=== PATIENT | female | born 1970 | race Caucasian/White ===

== ENCOUNTER 2017-07-31 05:02 | Emergency (ER) | payer OTHER ==
[~2017-07-31] VITALS: Ht 167.6 cm; Wt 65.9 kg
[2017-07-31 05:10] VITALS: Ht 167.6 cm; Wt 65.9 kg
[2017-07-31] MEDS ORDERED: ONDANSETRON 4 MG INJ IV STA (07:12)
[2017-07-31] MEDS ORDERED: SOD CHLORIDE 0.9% 1,000 ML IV STA (07:12)
[2017-07-31] MEDS ORDERED: morphine 4 MG/ML VIAL IV STA (07:12)
[2017-07-31 07:54] LABS: BASOPHILS % 0.5 % (0.0-2.0); EOSINOPHILS # 0.1 10^3/ul (0.0-0.5); EOSINOPHILS % 1.1 % (0.0-7.0); HEMATOCRIT 38.3 % (37.0-47.0); HEMOGLOBIN 13.1 g/dl (12.0-16.0); LYMPHOCYTES # 1.9 10^3/ul (0.8-2.9); LYMPHOCYTES % 31.2 % (15.0-51.0); MEAN CORPUSCULAR HGB CONC 34.2 g/dl (32.0-37.0); MEAN CORPUSCULAR VOLUME 90.8 fl (82.0-101.0); MEAN PLATELET VOLUME 9.8 fl (7.4-10.4); MONOCYTE # 0.4 10^3/ul (0.3-0.9); NEUTROPHIL # 3.8 10^3/ul (1.6-7.5); PLATELET COUNT 217 10^3/UL (140-415); RED BLOOD COUNT 4.22 10^6/ul (4.20-5.40); RED CELL DISTRIBUTION WIDTH 12.3 % (11.5-14.5); WHITE BLOOD COUNT 6.2 10^3/ul (4.8-10.8)
[2017-07-31 08:47] LABS: ADD UMIC YES; UR ASCORBIC ACID NEGATIVE (NEGATIVE); UR BACTERIA FEW /HPF (NONE SEEN); UR BILIRUBIN (Dip) NEGATIVE (NEGATIVE); UR BLOOD (Dip) 2+ mg/dL (NEGATIVE); UR CLARITY CLEAR (CLEAR); UR COLOR STRAW (YELLOW); UR GLUCOSE (Dip) NEGATIVE (NEGATIVE); UR KETONES (Dip) NEGATIVE (NEGATIVE); UR LEUKOCYTE ESTERASE (Dip) TRACE Leu/ul (NEGATIVE); UR NITRITE (Dip) NEGATIVE (NEGATIVE); UR RBC 0 /HPF (0-5); UR SPECIFIC GRAVITY (Dip) 1.004 (1.003-1.030); UR TOTAL PROTEIN (Dip) NEGATIVE (NEGATIVE); UR UROBILINOGEN (Dip) NEGATIVE (NEGATIVE)
[2017-07-31 08:52] LABS: ALBUMIN 3.9 g/dl (3.3-4.9); ALBUMIN/GLOBULIN RATIO 1.25; BILIRUBIN,INDIRECT 0.4 mg/dl (0-1.1); BILIRUBIN,TOTAL 0.4 mg/dl (0.2-1.3); CALCIUM 8.7 mg/dl (8.4-10.2); CREATININE 0.69 mg/dl (0.44-1.00); POTASSIUM 3.8 mmol/L (3.5-5.1)
[2017-07-31] MEDS ORDERED: NITR-58 PO (08:52)
[2017-07-31 09:19] VITALS: BP 147/70; PULSE 76; RESP 16; TEMP 98.4
--- NOTE | 2017-07-31 12:29 | ERA ---
ER Documentation Chief Complaint Date/Time DATE: 07/31/17 TIME: 12:24 Chief Complaint MID/LOWER AP SINCE 11PM LAST NIGHT. +VOMITING HPI Otherwise healthy 47-year-old female presenting with a chief complaint of abdominal pain 1 day. Patient is also complaining of vomiting that is described as nonbilious. No other specific characteristics given. Abdominal pain is currently 4-5 out of 10. States most of the pain is on the right side. Patient states that she is able to tolerate p.o. Denies fever, chills, dysuria, hematuria, neck pain, abdominal pain, diarrhea, constipation, headache or cough. No recent illness. No sick contacts. Vaccination status up-to-date. No recent travel. Has not taken any medications to relieve symptoms. Patient has no other complaints and describes no other associated manifestations. ROS All systems reviewed and are negative except as per history of present illness. Medications Home Meds Active Scripts Nitrofurantoin Monohyd Macrocr (Macrobid) 100 Mg Capsr, 100 MG PO BID for 5 Days , CAP Prov:MAURICE LOPEZ PA-C 07/31/17 Allergies Allergies: Coded Allergies: sulfamethoxazole (Verified Allergy, Mild, 07/31/17) trimethoprim (Verified Allergy, Mild, 07/31/17) PMhx/Soc Medical and Surgical Hx: pt denies Medical Hx, pt denies Surgical Hx History of Surgery: No Anesthesia Reaction: No Hx Neurological Disorder: No Hx Respiratory Disorders: No Hx Cardiac Disorders: No Hx Psychiatric Problems: No Hx Miscellaneous Medical Probl: No Hx Alcohol Use: No Hx Substance Use: No Hx Tobacco Use: No Smoking Status: Never smoker Physical Exam Vitals Vital Signs Date Time Temp Pulse Resp B/P Pulse Ox O2 Delivery O2 Flow Rate FiO2 07/31/17 09:19 98.4 76 16 147/70 100 Room Air 07/31/17 05:10 96.9 68 18 158/70 100 Physical Exam Const: Well-appearing 47-year-old female no acute distress. Head: Atraumatic Eyes: Normal Conjunctiva ENT: Normal External Ears, Nose and Mouth. Neck: Full range of motion..~ No meningismus. Resp: Clear to auscultation bilaterally Cardio: Regular rate and rhythm, no murmurs Abd: Soft, non tender, non distended. Normal bowel sounds Skin: No petechiae or rashes Back: No midline or flank tenderness Ext: No cyanosis, or edema Neur: Awake and alert Psych: Normal Mood and Affect Result Diagram: 07/31/17 0743 07/31/17 0818 Results 24 hrs Laboratory Tests Test 07/31/17 07:43 07/31/17 07:45 07/31/17 08:18 White Blood Count 6.210^3/ul Red Blood Count 4.2210^6/ul Hemoglobin 13.1g/dl Hematocrit 38.3% Mean Corpuscular Volume 90.8fl Mean Corpuscular Hemoglobin 31.0pg Mean Corpuscular Hemoglobin Concent 34.2g/dl Red Cell Distribution Width 12.3% Platelet Count 88674^3/UL Mean Platelet Volume 9.8fl Neutrophils % 61.0% Lymphocytes % 31.2% Monocytes % 6.0% Eosinophils % 1.1% Basophils % 0.5% Nucleated Red Blood Cells % 0.0/100WBC Neutrophils # 3.810^3/ul Lymphocytes # 1.910^3/ul Monocytes # 0.410^3/ul Eosinophils # 0.110^3/ul Basophils # 0.010^3/ul Nucleated Red Blood Cells # 0.010^3/ul Urine Color STRAW Urine Clarity CLEAR Urine pH 8.0 Urine Specific Sanders 1.004 Urine Ketones NEGATIVEmg/dL Urine Nitrite NEGATIVEmg/dL Urine Bilirubin NEGATIVEmg/dL Urine Urobilinogen NEGATIVEmg/dL Urine Leukocyte Esterase TRACELeu/ul Urine Microscopic RBC 0/HPF Urine Microscopic WBC 2/HPF Urine Bacteria FEW/HPF Urine Hemoglobin 2+mg/dL Urine Glucose NEGATIVEmg/dL Urine Total Protein NEGATIVEmg/dl Sodium Level 141mmol/L Potassium Level 3.8mmol/L Chloride Level 108mmol/L Carbon Dioxide Level 26mmol/L Anion Gap 11 Blood Urea Nitrogen 11mg/dl Creatinine 0.69mg/dl Glucose Level 88mg/dl Calcium Level 8.7mg/dl Total Bilirubin 0.4mg/dl Direct Bilirubin 0.00mg/dl Indirect Bilirubin 0.4mg/dl Aspartate Amino Transf (AST/SGOT) 27IU/L Alanine Aminotransferase (ALT/SGPT) 40IU/L Alkaline Phosphatase 52IU/L Total Protein 7.0g/dl Albumin 3.9g/dl Globulin 3.10g/dl Albumin/Globulin Ratio 1.25 Lipase 34U/L Current Medications Medications (Trade) Dose Ordered Sig/Kaitlyn Route PRN Reason Start Time Stop Time Status Last Admin Dose Admin Sodium Chloride (NS) 1,000 ml @ 1,000 mls/hr Q1H STAT IV 07/31/17 07:12 07/31/17 08:11 DC 07/31/17 08:20 Morphine Sulfate (morphine) 4 mg ONCE STAT IV 07/31/17 07:12 07/31/17 07:15 DC 07/31/17 08:21 Ondansetron HCl (Zofran Inj) 4 mg ONCE STAT IV 07/31/17 07:12 07/31/17 07:15 DC 07/31/17 07:12 Procedures/MDM Patient was evaluated and worked up for abdominal discomfort as described in history and physical examination. Physical examination unremarkable. No imaging indicated. Patient received normal saline 1 L, morphine 4 mg IV, ondansetron 4 mg IV. test was negative. Labs were obtained and reveal the following: CBC: WNL CMP: WNL lipase: WNL Urinalysis: Trace leukocyte esterase Most likely diagnosis is possible urinary tract infection versus abdominal pain of unknown origin.. At this time I do not suspect appendicitis, ectopic , ovarian cyst, PID, intestinal ischemia, obstruction, or other acute abdomen. On repeat exam, the abdominal exam remained unremarkable. The patient is well appearing, and tolerates PO. I have spoke with the patient regarding their condition and future management. They have verbally responded that they understand their status and treatment plan. The patients vitals are stable, and their current condition is appropriate for discharge. The patient will be given discharge instructions with return precautions. Departure Diagnosis: Primary Impression: Cystitis Condition: Stable Patient Instructions: Cystitis Additional Instructions: [place] un seguimiento con carver PCP dentro de los prximos 1-3 [place] para carissa evaluaci n ms completa y carissa posible derivacin a un especialista. Devuelva el departamento de emergencia inmediatamente si los sntomas empeoran o cambian. Si tiene alguna pregunta con respecto a los medicamentos, consulte con carver farmac utico o con nosotros antes de salir. Si se producen reacciones adversas mientras sabra claudio medicamentos, suspenda el tratamiento y regrese inmediatamente al servicio de urgencias. Penalosa claudio medicamentos segn las indicaciones y complete el curso completo del tratamiento. MAURICE LOPEZ PA-C Jul 31, 2017 12:29
== END 2017-07-31 09:23 | disposition home or self-care (01) ==
LOC: FTE 05:02
DX: N30.90 Cystitis, unspecified without hematuria (principal); R11.10 Vomiting, unspecified
CPT/HCPCS: 36415; 80053; 81001; 83690; 85025; 96361; 96374; 96375; J2270; J2405; J7030; Z7502